=== PATIENT | female | born 1965 | race Caucasian/White ===

== ENCOUNTER 2016-08-09 11:16 | Inpatient (IN) | payer MEDICAID ==
[~2016-08-09] VITALS: Ht 167.6 cm; Wt 81.1 kg
[~2016-08-09 11:16] MED LIST: ASPI81CH43 PO; CLON0.1T PO; METO-291 PO
[2016-08-09 11:56] LABS: Basophils # (auto) 0 uL; Basophils % (auto) 0.5 % (0.0-2.0); CONDITION Y; Eosinophils # (auto) 0.1 uL; Eosinophils % (auto) 1.6 % (0.0-7.0); Hematocrit 45.7 % (36.0-46.0); Hemoglobin 15.6 g/dL (12.2-16.2); Lymphocytes # (auto) 2.1 uL; Lymphocytes % (auto) 25.1 % (10.0-50.0); Mean Corpuscular Hemoglobin 28.4 pg (28.0-32.0); Mean Corpuscular Hgb Conc. 34.1 g/dL (32.0-36.0); Mean Corpuscular Volume 83.4 fL (80.0-100.0); Mean Platelet Volume 8.8 fL (7.4-10.4); Monocytes % (auto) 11.2 % (0.0-12.0); Neutrophils # (auto) 5.2 uL; Neutrophils % (auto) 61.6 % (37.0-80.0); Platelet Count (auto) 264 10^3/uL (140-450); White Blood Cell 8.5 10^3/uL (4.4-10.8)
[2016-08-09 12:11] LABS: Albumin 3.9 g/dL (3.4-5.0); Anion Gap 11 (5-15); Aspartate Aminotransferase 27 U/L (15-37); BUN/Creatinine Ratio 19.3; Blood Urea Nitrogen 16 mg/dL (7-18); Calcium 8.6 mg/dL (8.5-10.1); Carbon Dioxide 25 mmol/L (21-32); Chloride 107 mmol/L (98-107); GFR African American 94 mL/min; GFR Non-African American 77 mL/min; Glucose 77 mg/dL (74-106); Potassium 3.5 mmol/L (3.5-5.1); Sodium 143 mmol/L (136-145)
[2016-08-09 12:29] LABS: Alkaline Phosphatase 108 U/L (45-117); Bilirubin, Total 0.4 mg/dL (0.2-1.0); Total Protein 7.7 g/dL (6.4-8.2)
[2016-08-09 12:53] LABS: INR 0.98 (0.9-1.15); Prothrombin Time 10.7 sec (9.37-12.3)
[2016-08-09] MEDS ORDERED: ACETAMINOPHEN 325 MG TAB PO ONE (13:15)
[2016-08-09] MEDS ORDERED: cloNIDine HCL 0.1 MG TAB PO ONE (13:15)
[2016-08-09 14:24] LABS: Urine Bilirubin Negative (Negative); Urine Blood Negative /uL (Negative); Urine Color Yellow (Yellow); Urine Glucose Normal (Normal); Urine Ketone Negative (Negative); Urine Mucus FEW (None Seen); Urine RBC 2 /hpf (0 - 4); Urine Squamous Epithelial Cell MOD /hpf (<5); Urine Urobilinogen Normal (Negative); Urine pH 5.5 (5.0-8.0)
[2016-08-09 14:25] LABS: Urine Nitrite POSITIVE (Negative)
[2016-08-09] MEDS ORDERED: LACTULOSE 20Gm/30ML SOLN PO PRN (15:15)
[2016-08-09] MEDS ORDERED: TEMAZEPAM 15 MG CAP PO PRN (15:15)
[2016-08-09] MEDS ORDERED: PROMETHAZINE HCL 25 MG/ML 1ML IV PRN (15:15)
[2016-08-09] MEDS ORDERED: ACETAMINOPHEN 500 MG TAB PO PRN (15:15)
[2016-08-09] MEDS ORDERED: NITROGLYCERIN 0.4 MG SL TAB SL PRN (15:15)
[2016-08-09] MEDS ORDERED: NITROFURANTOIN (MONO) 100 mg CAP PO ONE (15:15)
[2016-08-09] MEDS ORDERED: MORPHINE SULFATE 4 MG/ML SYRG IV PRN ×2 (15:15)
[2016-08-09] MEDS ORDERED: METOPROLOL SUCCINATE XL 50 MG TAB PO ONE (15:30)
[2016-08-09] MEDS: HYDROcodone-ACET 5/325MG TAB PO PRN (15:42)
[2016-08-09 16:20] VITALS: BP 115/89
[2016-08-09 22:00] VITALS: BP 128/90
[2016-08-09] MEDS: ATORVASTATIN 20 MG TAB PO SCH (22:07)
[2016-08-09] MEDS: NITROFURANTOIN (MONO) 100 mg CAP PO SCH (22:08)
[2016-08-09] MEDS: cloNIDine HCL 0.1 MG TAB PO SCH (22:10)
[2016-08-09] MEDS: SODIUM CHLOR 0.9% PF (SALINE LOCK) 10ML VIAL IV SCH (22:11)
[2016-08-10 05:00] VITALS: BP 117/77
[2016-08-10] MEDS: SODIUM CHLOR 0.9% PF (SALINE LOCK) 10ML VIAL IV SCH ×3 (05:18→21:40)
[2016-08-10 07:04] LABS: Cholesterol 189 mg/dL (< 200); HDL Cholesterol 41 mg/dL (40-59); LDL Cholesterol 118 mg/dL (< 100); Triglycerides 207 mg/dL (< 150)
[2016-08-10 08:00] VITALS: BP 124/85
[2016-08-10] MEDS: HYDROcodone-ACET 5/325MG TAB PO PRN ×2 (08:38→15:51)
[2016-08-10 09:12] VITALS: BP 124/85
[2016-08-10] MEDS: ENOXAPARIN SOD 40 MG/0.4 ML SYRINGE SC SCH (10:00)
[2016-08-10] MEDS: cloNIDine HCL 0.1 MG TAB PO SCH ×2 (10:00→21:41)
[2016-08-10] MEDS: ASPirin 81 mg TAB PO SCH (10:24)
[2016-08-10] MEDS: METOPROLOL SUCCINATE XL 50 MG TAB PO SCH (10:26)
[2016-08-10] MEDS: NITROFURANTOIN (MONO) 100 mg CAP PO SCH ×2 (10:26→21:41)
[2016-08-10 14:00] VITALS: BP 112/66
[2016-08-10] MEDS: SOD CHL 0.45% 1,000 ML IV SCH (15:51)
[2016-08-10] MEDS ORDERED: SUMA50TA2 PO (15:53)
[2016-08-10 15:59] VITALS: BP 140/86
[2016-08-10] MEDS: SUMAtriptan SUCCINATE 25 MG TAB PO PRN (20:34)
[2016-08-10] MEDS: ATORVASTATIN 20 MG TAB PO SCH (21:40)
[2016-08-10 22:00] VITALS: BP 112/77
[2016-08-11 06:00] VITALS: BP 133/83
[2016-08-11] MEDS: SODIUM CHLOR 0.9% PF (SALINE LOCK) 10ML VIAL IV SCH ×2 (06:08→14:12)
[2016-08-11 08:00] VITALS: BP 149/94
[2016-08-11] MEDS: SUMAtriptan SUCCINATE 25 MG TAB PO PRN ×2 (09:12→14:11)
[2016-08-11] MEDS: NITROFURANTOIN (MONO) 100 mg CAP PO SCH (09:12)
[2016-08-11] MEDS: METOPROLOL SUCCINATE XL 50 MG TAB PO SCH (09:13)
[2016-08-11] MEDS: LORazepam 0.5 MG TAB PO PRN ×2 (09:13→17:41)
[2016-08-11] MEDS: ASPirin 81 mg TAB PO SCH (09:13)
[2016-08-11] MEDS: cloNIDine HCL 0.1 MG TAB PO SCH (09:13)
[2016-08-11] MEDS: ENOXAPARIN SOD 40 MG/0.4 ML SYRINGE SC SCH (09:14)
[2016-08-11 10:58] LABS: Temperature: 23.3 C (20.0-25.0)
[2016-08-11] MEDS: SOD CHL 0.45% 1,000 ML IV SCH (11:30)
[2016-08-11 12:30] VITALS: BP 124/83
[2016-08-11 15:26] VITALS: BP 124/83
[2016-08-11] MEDS ORDERED: SUMA50TA2 PO (15:38)
[2016-08-11] MEDS ORDERED: ENAL2.5T PO (15:38)
[2016-08-11] MEDS ORDERED: METO-159 PO (15:38)
[2016-08-11 17:30] VITALS: BP 148/69
== END 2016-08-11 17:45 | disposition home or self-care (01) | DRG 54 ==
LOC: ER 11:18 → TELE 11:19 → TELE-E-ADS 16:15 → TELE-EAST 17:11
PROVIDERS: ADMIT Internal Medicine; ATTEND Internal Medicine
DX: G43.109 Migraine with aura, not intractable, without status migrainosus (principal); N39.0 Urinary tract infection, site not specified; I16.0 Hypertensive urgency; F32.9 Major depressive disorder, single episode, unspecified; F41.9 Anxiety disorder, unspecified; I10 Essential (primary) hypertension; B96.20 Unspecified Escherichia coli [E. coli] as the cause of diseases classified elsewhere; Z82.3 Family history of stroke; Z82.49 Family history of ischemic heart disease and other diseases of the circulatory system; Z90.710 Acquired absence of both cervix and uterus; Z71.89 Other specified counseling; Z80.9 Family history of malignant neoplasm, unspecified; Z79.82 Long term (current) use of aspirin; Z88.0 Allergy status to penicillin
CPT/HCPCS: 36415; 70450; 71020; 80053; 80061; 80307; 81001; 82550; 82607; 82746; 82962; 83735; 84443; 84484; 85025; 85610; 85652; 85730; 87086; 87088; 87186; 93005; 93306; 93886; 94761

== ENCOUNTER 2017-08-10 08:11 | Emergency (ER) | payer MEDICAID ==
[~2017-08-10] VITALS: Ht 167.6 cm; Wt 77.1 kg
[~2017-08-10 08:11] MED LIST changes: -ASPI81CH43 PO; -CLON0.1T PO; +ENAL2.5T PO; +METO-159 PO; -METO-291 PO; +SUMA50TA2 PO
[2017-08-10] MEDS ORDERED: SODIUM CHLORIDE 0.9% 1,000 ML IV ONE (08:55)
[2017-08-10] MEDS ORDERED: ASPirin 81 mg TAB PO ONE (09:00)
[2017-08-10] MEDS ORDERED: LORazepam 2MG/ML-1ML VIAL IV ONE (09:00)
[2017-08-10 09:14] LABS: Basophils # (auto) 0.1 uL; Basophils % (auto) 1.1 % (0.0-2.0); Eosinophils # (auto) 0.2 uL; Eosinophils % (auto) 2.7 % (0.0-7.0); Hematocrit 44.7 % (36.0-46.0); Hemoglobin 14.9 g/dL (12.2-16.2); Lymphocytes # (auto) 1.7 uL; Lymphocytes % (auto) 21.3 % (10.0-50.0); Mean Corpuscular Hemoglobin 27.5 pg (28.0-32.0); Mean Corpuscular Hgb Conc. 33.4 g/dL (32.0-36.0); Mean Corpuscular Volume 82.4 fL (80.0-100.0); Monocytes # (auto) 0.6 uL; Monocytes % (auto) 7.3 % (0.0-12.0); Neutrophils # (auto) 5.3 uL; Neutrophils % (auto) 67.6 % (37.0-80.0); Nucleated Red Blood Cells % 0.2 %; Platelet Count (auto) 317 10^3/uL (140-450); Red Blood Cells 5.42 10^6/uL (4.0-5.20); Red Cell Distribution Width 13.4 % (11.8-14.3); White Blood Cell 7.8 10^3/uL (4.4-10.8)
[2017-08-10 09:24] LABS: Alanine Aminotransferase 37 U/L (13-56); Albumin 4.1 g/dL (3.4-5.0); Alkaline Phosphatase 106 U/L (45-117); Anion Gap 12 (5-15); Aspartate Aminotransferase 19 U/L (15-37); BUN/Creatinine Ratio 14.4; Bilirubin, Total 0.4 mg/dL (0.2-1.0); Blood Urea Nitrogen 13 mg/dL (7-18); Calcium 9.2 mg/dL (8.5-10.1); Carbon Dioxide 22 mmol/L (21-32); Chloride 106 mmol/L (98-107); GFR African American 85 mL/min; GFR Non-African American 70 mL/min; Glucose 100 mg/dL (74-106); Potassium 3.8 mmol/L (3.5-5.1); Sodium 140 mmol/L (136-145); Total Protein 7.8 g/dL (6.4-8.2)
[2017-08-10 12:07] LABS: Urine Bacteria MANY /hpf (None Seen); Urine Blood Negative /uL (Negative); Urine Mucus FEW (None Seen); Urine Specific Gravity 1.027 (1.001-1.035); Urine WBC 34 /hpf (0 - 5)
[2017-08-10 12:30] VITALS: BP 124/81
== END 2017-08-10 12:34 | disposition home or self-care (01) ==
LOC: EDBD 08:11 → ER 08:11
DX: R07.89 Other chest pain (principal); F41.9 Anxiety disorder, unspecified; J45.909 Unspecified asthma, uncomplicated; Z90.710 Acquired absence of both cervix and uterus; Z88.0 Allergy status to penicillin
CPT/HCPCS: 36415; 71045; 80053; 81001; 84484; 85025; 93005; 96374; 99285; J2060

== ENCOUNTER 2021-08-07 13:45 | Inpatient (IN) | payer MEDICAID ==
[~2021-08-07] VITALS: Ht 167.6 cm; Wt 89.0 kg
[~2021-08-07 13:45] MED LIST changes: -ENAL2.5T PO; +ENAL2.5T7 PO
[2021-08-07 14:15] LABS: Basophils # (auto) 0.1 10 ^3/uL (0-0.2); Basophils % (auto) 1.1 % (0.0-2.0); Eosinophils # (auto) 0.2 10 ^3/uL (0-0.8); Eosinophils % (auto) 1.6 % (0.0-7.0); Hematocrit 41.8 % (36.0-46.0); Hemoglobin 13.8 g/dL (12.2-16.2); Lymphocytes # (auto) 2.4 10 ^3/uL (0.4-5.4); Lymphocytes % (auto) 23.4 % (10.0-50.0); Mean Corpuscular Hemoglobin 27.7 pg (28.0-32.0); Mean Corpuscular Hgb Conc. 33.1 g/dL (32.0-36.0); Mean Corpuscular Volume 83.9 fL (80.0-100.0); Monocytes # (auto) 1.1 10 ^3/uL (0-1.3); Monocytes % (auto) 10.9 % (0.0-12.0); Neutrophils # (auto) 6.4 10 ^3/uL (1.6-8.6); Nucleated Red Blood Cells % 0.1 %; Red Blood Cells 4.98 10^6/uL (4.0-5.20); White Blood Cell 10.1 10^3/uL (4.4-10.8)
[2021-08-07 14:30] LABS: INR 1.08 (0.9-1.15); Partial Thromboplastin Time 28.9 sec (23.6-33.0)
[2021-08-07 14:39] LABS: Albumin 3.6 g/dL (3.4-5.0); Calcium 8.3 mg/dL (8.5-10.1); Magnesium 1.8 mg/dL (1.6-2.6)
[2021-08-07 14:41] LABS: Bilirubin, Total 0.5 mg/dL (0.2-1.0); Total Protein 6.7 g/dL (6.4-8.2)
[2021-08-07 15:09] LABS: Potassium 2.7 mmol/L (3.5-5.1)
[2021-08-07 15:28] LABS: Urine Bacteria FEW /hpf (None Seen); Urine Blood Negative /uL (Negative); Urine Mucus FEW (None Seen); Urine Specific Gravity 1.027 (1.001-1.035); Urine WBC 21 /hpf (0 - 5)
[2021-08-07 15:45] LABS: Amphetamine Screen, Urine POSITIVE (NEGATIVE); Barbiturate Scree,Urine NEGATIVE (NEGATIVE); Benzodiazephine Screen, Urine NEGATIVE (NEGATIVE); Cannabinoid Screen, Urine POSITIVE (NEGATIVE); Cocaine Screen, Urine NEGATIVE (NEGATIVE); Opiate Scree,Urine NEGATIVE (NEGATIVE); Phencyclidine Screen, Urine NEGATIVE (NEGATIVE)
[2021-08-07] MEDS ORDERED: POTASSIUM CHL 20 Meq TABLET PO ONE (16:15)
[2021-08-07] MEDS ORDERED: SOD CHL 0.45% WITH 20MEQ KCL 1,000 ML IV ONE (16:15)
[2021-08-07] MEDS ORDERED: cefTRIAXone 1GM/50ML D5W 50 ML IV ONE (17:45)
[2021-08-07] MEDS ORDERED: CIPROFLOXACIN 400MG/200ML 200 ML IV ONE (18:15)
[2021-08-07] MEDS ORDERED: MORPHINE SULFATE INJ 2 MG/ml SYRG IV PRN ×2 (18:30)
[2021-08-07] MEDS ORDERED: NITROGLYCERIN 0.4 MG SL TAB SL PRN (18:30)
[2021-08-07] MEDS ORDERED: hydrALAZINE HCL 20 MG/ML VL IV PRN (18:45)
[2021-08-07 19:04] LABS: Cholesterol 147 mg/dL (< 200); Triglycerides 172 mg/dL (< 150)
[2021-08-07 19:07] LABS: HDL Cholesterol 30 mg/dL (40-59); LDL Cholesterol 100 mg/dL (< 100)
[2021-08-08 00:28] VITALS: BP 120/66
[2021-08-08 05:00] VITALS: BP 102/61
[2021-08-08 06:10] LABS: Basophils # (auto) 0.1 10 ^3/uL (0-0.2); Basophils % (auto) 0.9 % (0.0-2.0); Eosinophils # (auto) 0.2 10 ^3/uL (0-0.8); Eosinophils % (auto) 2.8 % (0.0-7.0); Hematocrit 39.3 % (36.0-46.0); Hemoglobin 13.3 g/dL (12.2-16.2); Lymphocytes # (auto) 1.4 10 ^3/uL (0.4-5.4); Lymphocytes % (auto) 24.3 % (10.0-50.0); Mean Corpuscular Hemoglobin 28.3 pg (28.0-32.0); Mean Corpuscular Hgb Conc. 33.8 g/dL (32.0-36.0); Mean Corpuscular Volume 83.9 fL (80.0-100.0); Monocytes # (auto) 0.7 10 ^3/uL (0-1.3); Monocytes % (auto) 12.1 % (0.0-12.0); Neutrophils # (auto) 3.5 10 ^3/uL (1.6-8.6); Neutrophils % (auto) 59.9 % (37.0-80.0); Nucleated Red Blood Cells % 0.1 %; Red Blood Cells 4.68 10^6/uL (4.0-5.20); Red Cell Distribution Width 13.9 % (11.8-14.3); White Blood Cell 5.9 10^3/uL (4.4-10.8)
[2021-08-08] MEDS ORDERED: BACL10TA PO (06:28)
[2021-08-08] MEDS ORDERED: OMEP20TA PO (06:28)
[2021-08-08] MEDS ORDERED: METO-159 PO ×2 (06:28→17:21)
[2021-08-08] MEDS ORDERED: ALBU2TAB4 PO (06:28)
[2021-08-08] MEDS ORDERED: LORA-35 PO (06:28)
[2021-08-08] MEDS ORDERED: MONT-8 PO (06:28)
[2021-08-08 06:32] LABS: Albumin 3.1 g/dL (3.4-5.0); BUN/Creatinine Ratio 12.8; Bilirubin, Total 0.8 mg/dL (0.2-1.0); Calcium 7.9 mg/dL (8.5-10.1); Total Protein 6.3 g/dL (6.4-8.2)
[2021-08-08 09:00] VITALS: BP 125/99
[2021-08-08] MEDS ORDERED: cefTRIAXone 1GM/50ML D5W 50 ML IV SCH (09:00)
[2021-08-08 13:00] VITALS: BP 142/96
[2021-08-08] MEDS ORDERED: METOPROLOL TARTRATE 50 MG TAB PO ONE (13:30)
[2021-08-08] MEDS: POTASSIUM CHL 20MEQ/100ML 100 ML IV SCH ×2 (13:59→16:53)
[2021-08-08 16:32] VITALS: BP 125/88
[2021-08-08] MEDS ORDERED: OMEP-260 PO ×2 (17:01→17:21)
[2021-08-08] MEDS ORDERED: ASPI-325 PO (17:21)
[2021-08-08] MEDS ORDERED: LEVO500T31 PO (17:21)
[2021-08-08] MEDS ORDERED: ATOR20TA50 PO (17:21)
[2021-08-08 22:00] VITALS: BP 116/79
[2021-08-08] MEDS ORDERED: ATORVASTATIN 20 MG TAB PO SCH (22:00)
[2021-08-08] MEDS: METOPROLOL TARTRATE 50 MG TAB PO SCH (22:02)
[2021-08-09 05:18] VITALS: BP 123/62
[2021-08-09 06:06] LABS: Calcium 8.5 mg/dL (8.5-10.1); Potassium 3.7 mmol/L (3.5-5.1)
[2021-08-09 06:08] LABS: BUN/Creatinine Ratio 11.3
[2021-08-09] MEDS: METOPROLOL TARTRATE 50 MG TAB PO SCH (08:29)
[2021-08-09 09:30] VITALS: BP 112/76
[2021-08-09] MEDS ORDERED: ENOXAPARIN SOD 40 MG/0.4 ML SYRINGE SC SCH (10:00)
[2021-08-09] MEDS ORDERED: ASPirin 81 mg TAB PO SCH (10:00)
[2021-08-09] MEDS ORDERED: PANTOPRAZOLE 40 MG TAB PO SCH (10:00)
[2021-08-09 13:18] VITALS: BP 113/70
[2021-08-09 15:29] VITALS: BP 113/70
== END 2021-08-09 15:52 | disposition home or self-care (01) | DRG 203 ==
LOC: EDBD 13:45 → ER 13:45 → TELE 18:22 → TELE-WESTW 22:43
PROVIDERS: ADMIT Registered Nurse; ATTEND Internal Medicine
DX: R07.9 Chest pain, unspecified (principal); E66.01 Morbid (severe) obesity due to excess calories; K21.9 Gastro-esophageal reflux disease without esophagitis; I48.91 Unspecified atrial fibrillation; E87.6 Hypokalemia; N39.0 Urinary tract infection, site not specified; N18.2 Chronic kidney disease, stage 2 (mild); E78.5 Hyperlipidemia, unspecified; F12.90 Cannabis use, unspecified, uncomplicated; F15.10 Other stimulant abuse, uncomplicated; F32.A Depression, unspecified; F41.9 Anxiety disorder, unspecified; Z20.822 Contact with and (suspected) exposure to COVID-19; I12.9 Hypertensive chronic kidney disease with stage 1 through stage 4 chronic kidney disease, or unspecified chronic kidney disease; J45.909 Unspecified asthma, uncomplicated; Z68.31 Body mass index [BMI] 31.0-31.9, adult; Z82.3 Family history of stroke; Z82.49 Family history of ischemic heart disease and other diseases of the circulatory system; Z90.710 Acquired absence of both cervix and uterus; Z88.0 Allergy status to penicillin
CPT/HCPCS: 36415; 71045; 80048; 80053; 80061; 80307; 81001; 83036; 83735; 83880; 84132; 84443; 84484; 85025; 85610; 85730; 87086; 93005; 93306; 96361; 96365; 99291; G0378; J3480

== ENCOUNTER 2025-01-12 10:05 | Outpatient (CLI) | payer MEDICAID ==
[~2025-01-12 10:05] MED LIST changes: +ASPI-325 PO; +ATOR20TA50 PO; -ENAL2.5T7 PO; +LEVO500T31 PO; +OMEP1CAP70 PO; -SUMA50TA2 PO
--- NOTE | 2025-01-12 12:00 | DVH ---
US US GUIDANCE FOR NEEDLE PLACEME, HISTORY: RIGHT THYROID NODULE PROCEDURE: An informed consent was obtained. Limited localization ultrasound of the thyroid gland was obtained. The right neck base was prepped with chlorhexidine which was allowed to dry and draped in the usual sterile fashion. Timeout was performed. The skin and soft tissues were infiltrated with 1% Xylocaine. With ultrasound guidance, multiple fine needle aspirate biopsies of the nodules were obtained using a 25 gauge Secure-cut needle. The neck was cleaned and a sterile band-aid applied. The specimens were sent to pathology for analysis. No immediate complication was identified. FINDINGS: Limited ultrasound of the thyroid during the biopsy demonstrates biopsy needle within nodule. IMPRESSION: Ultrasound FNA of right upper pole thyroid nodule.
== END 2025-01-12 17:00 | disposition home or self-care (01) ==
LOC: US 10:05
DX: E04.1 Nontoxic single thyroid nodule (principal); F41.9 Anxiety disorder, unspecified; F32.5 Major depressive disorder, single episode, in full remission; G43.909 Migraine, unspecified, not intractable, without status migrainosus; K21.9 Gastro-esophageal reflux disease without esophagitis; I12.9 Hypertensive chronic kidney disease with stage 1 through stage 4 chronic kidney disease, or unspecified chronic kidney disease; N18.2 Chronic kidney disease, stage 2 (mild); F12.90 Cannabis use, unspecified, uncomplicated; Z88.0 Allergy status to penicillin; Z88.8 Allergy status to other drugs, medicaments and biological substances; Z88.6 Allergy status to analgesic agent; Z91.040 Latex allergy status; Z98.891 History of uterine scar from previous surgery; Z90.710 Acquired absence of both cervix and uterus; Z98.890 Other specified postprocedural states; Z79.82 Long term (current) use of aspirin; Z79.899 Other long term (current) drug therapy
CPT/HCPCS: 10005; 76536; 76942; 88173; 88341